=== PATIENT | male | born 1985 | race Caucasian/White ===

== ENCOUNTER 2022-01-16 05:58 | Emergency (ER) | payer SELFPAY ==
[2022-01-16] MEDS ORDERED: Acetaminophen 325 MG Tab PO ONE (06:22)
== END 2022-01-16 06:38 | disposition home or self-care (01) ==
LOC: JD.ED 05:58
DX: K08.89 Other specified disorders of teeth and supporting structures (principal)
CPT/HCPCS: 99282; A9270